=== PATIENT | female | born 1995 | race Caucasian/White ===

== ENCOUNTER 2021-12-29 19:48 | Emergency (ER) | payer BC | END 2021-12-29 20:20 | disposition home or self-care (01) | LOC: LL.ED 19:48 | DX: K08.89 Other specified disorders of teeth and supporting structures (principal); Z88.0 Allergy status to penicillin | CPT/HCPCS: 99282; 99283 ==

== ENCOUNTER 2023-04-15 17:30 | Emergency (ER) | payer BC ==
[2023-04-15] MEDS ORDERED: Take Home: oxyCODONE HCl 5 MG Tab, 5 Tab Pack PO ONE (18:54)
== END 2023-04-15 19:10 | disposition home or self-care (01) ==
LOC: LL.ED 17:30
DX: S52.522A Torus fracture of lower end of left radius, initial encounter for closed fracture (principal); S52.572A Other intraarticular fracture of lower end of left radius, initial encounter for closed fracture; Z88.0 Allergy status to penicillin; V80.010A Animal-rider injured by fall from or being thrown from horse in noncollision accident, initial encounter
CPT/HCPCS: 72220; 73100-LT; 73120-LT; 99283; A9270-GY